=== PATIENT | female | born 1970 | race Caucasian/White ===

== ENCOUNTER → 2024-05-14 08:44 | Outpatient (REF) | payer OTHER, SELFPAY | LOC: HWWDC 08:44 | PROVIDERS: ATTENDING PHYSICIAN Obstetrics & Gynecology; FAMILY PHYSICIAN Family Medicine | DX: Z12.31 Encounter for screening mammogram for malignant neoplasm of breast (principal) | CPT/HCPCS: 77063; 77067 ==

== ENCOUNTER → 2025-08-06 10:19 | Outpatient (REF) | payer OTHER, SELFPAY | LOC: HWWDC 10:19 | PROVIDERS: ATTENDING PHYSICIAN Obstetrics & Gynecology; FAMILY PHYSICIAN Nurse Practitioner Family | DX: Z12.31 Encounter for screening mammogram for malignant neoplasm of breast (principal) | CPT/HCPCS: 77063; 77067 ==

== ENCOUNTER → 2025-08-19 08:56 | Outpatient (REF) | payer OTHER, SELFPAY | LOC: WDC 08:56 | PROVIDERS: ATTENDING PHYSICIAN Obstetrics & Gynecology; FAMILY PHYSICIAN Nurse Practitioner Family | DX: R92.8 Other abnormal and inconclusive findings on diagnostic imaging of breast (principal) | CPT/HCPCS: 76642 ==

== ENCOUNTER → 2025-08-27 08:16 | Outpatient (REF) | payer OTHER, SELFPAY ==
--- NOTE | 2025-08-27 14:47 | OID.BR.INTR ---
OID Breast Navigator - Initial
- -
Did not meet patient at time of biopsy. Will follow up per protocol.
== END ==
LOC: WDC 08:16
PROVIDERS: ATTENDING PHYSICIAN Obstetrics & Gynecology; FAMILY PHYSICIAN Nurse Practitioner Family
DX: N63.22 Unspecified lump in the left breast, upper inner quadrant (principal)
CPT/HCPCS: 19083; 88305; A4648